=== PATIENT | female | born 1980 ===

== ENCOUNTER 2025-07-14 08:28 | Emergency (ER) | payer MEDICAID, OTHER ==
[~2025-07-14] VITALS: Ht 160 cm; Wt 64.0 kg
[2025-07-14 08:42] VITALS: O2SAT 99
[2025-07-14 09:00] VITALS: BP 127/81; PULSE 87; RESP 16; TEMP 37; O2SAT 98
[2025-07-14] MEDS ORDERED: CEPH500C2 MT (09:50)
[2025-07-14] MEDS ORDERED: PYR200 MT (09:50)
[2025-07-14] MEDS ORDERED: CEPHALEXIN 250MG CAPSULE PO ONE (10:00)
[2025-07-14] MEDS ORDERED: PHENAZOPYRIDINE HCL 100MG TABLET PO ONE (10:00)
== END 2025-07-14 10:13 | disposition home or self-care (01) ==
LOC: ER 08:28
DX: N39.0 Urinary tract infection, site not specified (principal)
CPT/HCPCS: 81025; 99283